=== PATIENT | female | born 1985 | race African-American/Black ===

== ENCOUNTER 2016-05-15 18:31 | Emergency (ER) | payer OTHER ==
[~2016-05-15] VITALS: Ht 160 cm; Wt 76.2 kg
[~2016-05-15 18:31] MED LIST: BUTALB-APAP-CA1 EACH PO; FLONASE 0.05%50 MCG NASAL; IBUPROFEN 200200 M1 PO
[2016-05-15] MEDS ORDERED: PREDNISONE 20 M20 MG PO (19:39)
[2016-05-15] MEDS ORDERED: TESSALON PERLE100 MG PO (19:39)
[2016-05-15] MEDS ORDERED: VENTOLIN HFA 1818 GM INH (19:39)
[2016-05-15] MEDS ORDERED: CLARITIN-D 12 H1 TA1 PO (19:39)
[2016-05-15 19:44] VITALS: BP 142/81
== END 2016-05-15 19:48 | disposition home or self-care (01) ==
LOC: ER 18:31
DX: J06.9 Acute upper respiratory infection, unspecified (principal); J40 Bronchitis, not specified as acute or chronic; F17.210 Nicotine dependence, cigarettes, uncomplicated

== ENCOUNTER 2017-06-29 07:45 | Emergency (ER) | payer OTHER ==
[~2017-06-29] VITALS: Ht 160 cm; Wt 65.8 kg
--- NOTE | ~2017-06-29 | EKG ---
[place] [address] [facility] [place] [address] ELECTROCARDIOGRAM REPORT Name: LOUIS BUENO Room #: DEP [facility] [place]#: [id number] Admission: 06/29/17 Attend Phys: Discharge: 06/29/17 Date of : 83 Report #: [id number] THIS REPORT FOR: //name// [facility] ED Test Date: 2017-06-29 Test Time: 08:29:50 Pat Name: LOUIS BUENO Department: Room: Gender: F Consulting Application Engineer: Alek NOVAK RN : 1985 Requested By: Bala Rolon Order Number: [id number] MD: Wero Bridges Measurements Intervals [place] Rate: 90 P: 56 IN: 137 QRS: 11 QRSD: 72 T: 12 QT: 343 QTc: 420 Interpretive Statements Sinus rhythm Early R-wave progression No previous ECG available for comparison Electronically Signed On 07-03-2017 12:53:42 CDT by Wero Bridges [email or web address] <ELECTRONICALLY SIGNED> By: Wero Bridges MD, [facility] 07/03/17 1253 0829 0829 Wero Bridges MD, FACC /EPI
[~2017-06-29 07:45] MED LIST changes: +CLARITIN-D 12 H1 TA1 PO; +PREDNISONE 20 M20 MG PO; +TESSALON PERLE100 MG PO; +VENTOLIN HFA 1818 GM INH
[2017-06-29 08:26] LABS: URINE BILIRUBIN NEGATIVE (Negative); URINE BLOOD 3+ (Negative); URINE COLOR YELLOW; URINE GLUCOSE-RANDOM* NEGATIVE (Negative); URINE KETONES NEGATIVE (Negative); URINE NITRITE-REFLEX NEGATIVE (Negative); URINE PROTEIN (DIPSTICK) NEGATIVE (Negative); URINE UROBILINOGEN 0.2 E.U./dl (0.2-1.0)
[2017-06-29 08:28] LABS: URINE CLARITY SL HAZY; URINE LEUKOCYTES-REFLEX 1+ (Negative)
[2017-06-29 08:29] LABS: SQUAMOUS 4-10 Moderate /LPF (0-3)
[2017-06-29 08:30] LABS: CASTS None Seen /LPF (None Seen); CRYSTALS None Seen /LPF (None Seen); URINE RBC 3-10 Few /HPF (0-2); URINE WBC-REFLEX 6-15 Few /HPF (0-5)
[2017-06-29 08:35] LABS: AMP/METHAMP Negative (Negative); BARBITURATES Negative (Negative); BENZODIAZEPINES Negative (Negative); COCAINE Negative (Negative); METHADONE Negative (Negative); OPIATES Negative (Negative); PCP Negative (Negative)
[2017-06-29 08:38] LABS: ABSOLUTE NEUTROPHILS 2.6 thou/uL (1.4-8.2); BASOPHILS 0.4 % (0.0-2.0); EOSINOPHILS 0.8 % (0.0-3.0); HEMATOCRIT 36.7 % (37.0-47.0); HEMOGLOBIN 12.3 gm/dL (12.0-15.0); LYMPHOCYTES 32.2 % (24.0-44.0); MCH 28.9 pg (26.0-34.0); MCHC 33.5 g/dL (28.0-37.0); MCV 86.1 fL (80.0-100.0); MONOCYTES 6.6 % (1.0-8.0); PLATELET COUNT 163 thou/uL (150-400); RBC 4.26 mil/uL (4.20-5.00); RDW 12.4 % (10.5-14.5); WBC 4.4 thou/uL (4.0-11.0)
[2017-06-29 08:50] LABS: ANION GAP 6 mmol/L (7-16); BUN 8 mg/dL (7-18); CHLORIDE 107 mmol/L (98-107); CO2 25 mmol/L (21-32); CREATININE 0.6 mg/dL (0.6-1.0); GLUCOSE 87 mg/dL (74-106); POTASSIUM 3.7 mmol/L (3.5-5.1); SODIUM 138 mmol/L (136-145)
[2017-06-29 08:53] LABS: PROTIME 9.5 Seconds (9.3-11.4)
[2017-06-29 08:58] LABS: ALBUMIN 3.4 g/dL (3.4-5.0); MAGNESIUM 1.8 mg/dL (1.8-2.4); SGOT 18 U/L (15-37); SGPT 25 U/L (30-65); TOTAL BILIRUBIN 0.2 mg/dL (<0.1-1.0); TROPONIN-I < 0.04 ng/mL (<0.06)
[2017-06-29] MEDS ORDERED: BUTALB-APAP-CA1 EACH PO (09:43)
[2017-06-29] MEDS ORDERED: FLAGYL500 MG PO (09:43)
[2017-06-29] MEDS ORDERED: KEFLEX500 M1 PO (09:43)
== END 2017-06-29 10:30 | disposition home or self-care (01) ==
LOC: ER 07:45
PROVIDERS: Emergency Medicine
DX: G44.1 Vascular headache, not elsewhere classified (principal); N30.00 Acute cystitis without hematuria; R20.0 Anesthesia of skin; R20.2 Paresthesia of skin; A59.9 Trichomoniasis, unspecified; F17.210 Nicotine dependence, cigarettes, uncomplicated

== ENCOUNTER 2017-11-09 05:55 | Emergency (ER) | payer OTHER ==
[~2017-11-09] VITALS: Ht 160 cm; Wt 80.3 kg
[~2017-11-09 05:55] MED LIST changes: +FLAGYL500 MG PO; +KEFLEX500 M1 PO
[2017-11-09 06:46] LABS: URINE BILIRUBIN NEGATIVE (Negative); URINE BLOOD 3+ (Negative); URINE COLOR YELLOW; URINE GLUCOSE-RANDOM* NEGATIVE (Negative); URINE KETONES NEGATIVE (Negative); URINE NITRITE-REFLEX NEGATIVE (Negative); URINE PROTEIN (DIPSTICK) TRACE (Negative); URINE SPECIFIC GRAVITY >= 1.030 (1.005-1.035); URINE UROBILINOGEN 0.2 E.U./dl (0.2-1.0)
[2017-11-09 06:48] LABS: URINE CLARITY SL HAZY; URINE LEUKOCYTES-REFLEX 1+ (Negative)
[2017-11-09 07:09] LABS: CASTS None Seen /LPF (None Seen); MUCUS 4-6 Moderate strn/LPF (None Seen); SQUAMOUS >10 Many /LPF (0-3)
[2017-11-09 07:11] LABS: CRYSTALS None Seen /LPF (None Seen); URINE RBC 3-10 Few /HPF (0-2); URINE WBC-REFLEX 6-15 Few /HPF (0-5)
[2017-11-09 07:16] LABS: HEMOGLOBIN 13.2 gm/dL (12.0-15.0); MCH 29.2 pg (26.0-34.0); MCHC 33.9 g/dL (28.0-37.0); MCV 86.2 fL (80.0-100.0); RBC 4.52 mil/uL (4.20-5.00)
[2017-11-09 07:20] LABS: CREATININE 0.8 mg/dL (0.6-1.0); POTASSIUM 3.4 mmol/L (3.5-5.1)
[2017-11-09 07:25] LABS: ALBUMIN 3.3 g/dL (3.4-5.0); TOTAL BILIRUBIN 0.2 mg/dL (<0.1-1.0); TOTAL PROTEIN 6.7 g/dL (6.4-8.2)
[2017-11-09 09:46] VITALS: BP 110/67
== END 2017-11-09 09:30 | disposition home or self-care (01) ==
LOC: ER 05:55
PROVIDERS: Student in an Organized Health Care Education/Training Program
DX: O20.0 Threatened abortion (principal); A59.9 Trichomoniasis, unspecified; F17.210 Nicotine dependence, cigarettes, uncomplicated; Z3A.00 Weeks of gestation of pregnancy not specified

== ENCOUNTER 2019-11-22 15:01 | Emergency (ER) | payer OTHER ==
[~2019-11-22] VITALS: Ht 160 cm; Wt 61.2 kg
[2019-11-22] MEDS ORDERED: FLEXERIL PO (17:06)
[2019-11-22] MEDS ORDERED: IBUPROFEN 600600 M1 PO (17:06)
[2019-11-22 17:14] VITALS: BP 113/67
== END 2019-11-22 17:15 | disposition home or self-care (01) ==
LOC: ER 15:01
DX: S29.012A Strain of muscle and tendon of back wall of thorax, initial encounter (principal); S16.1XXA Strain of muscle, fascia and tendon at neck level, initial encounter; M25.511 Pain in right shoulder; M25.512 Pain in left shoulder; R51 Headache; F17.210 Nicotine dependence, cigarettes, uncomplicated; X50.0XXA Overexertion from strenuous movement or load, initial encounter; Y93.89 Activity, other specified; Y92.89 Other specified places as the place of occurrence of the external cause; Y99.0 Civilian activity done for income or pay